=== PATIENT | female | born 1980 | race Caucasian/White ===

== ENCOUNTER 2017-08-12 13:09 | Emergency (ER) | payer SELFPAY, OTHER | END 2017-08-12 16:00 | disposition left against medical advice (07) | LOC: FTE 13:09 | DX: Z53.21 Procedure and treatment not carried out due to patient leaving prior to being seen by health care provider (principal) ==

== ENCOUNTER 2018-01-08 00:27 | Emergency (ER) | payer SELFPAY, OTHER | END 2018-01-08 00:54 | disposition left against medical advice (07) | LOC: FTE 00:27 | DX: Z53.21 Procedure and treatment not carried out due to patient leaving prior to being seen by health care provider (principal) ==

== ENCOUNTER 2018-04-24 18:24 | Emergency (ER) | payer OTHER ==
[2018-04-24] MEDS ORDERED: ONDANSETRON 4 MG INJ IV (19:28)
[2018-04-24] MEDS ORDERED: SOD CHLORIDE 0.9% 1,000 ML IV (19:28)
[2018-04-24] MEDS ORDERED: FAMOTIDINE 20 MG INJ IV (19:28)
[2018-04-24 19:56] LABS: URINE BLOOD (Dip) POC 2+ (NEGATIVE); URINE GLUCOSE (Dip) POC Negative (NEGATIVE); URINE KETONES (Dip) POC Negative (NEGATIVE); URINE LEUKOCYTE EST (Dip) POC Negative (NEGATIVE); URINE NITRITE (Dip) POC Negative (NEGATIVE); URINE TOTAL PROTEIN POC Negative (NEGATIVE)
== END 2018-04-24 20:46 | disposition left against medical advice (07) ==
LOC: FTE 18:24
DX: R10.2 Pelvic and perineal pain (principal); F17.210 Nicotine dependence, cigarettes, uncomplicated
CPT/HCPCS: 71045; 81003; 81025; 99283-25

== ENCOUNTER 2018-06-16 23:59 | Emergency (ER) | payer SELFPAY, OTHER | END 2018-06-17 02:30 | disposition left against medical advice (07) | LOC: FTE 23:59 | DX: Z53.21 Procedure and treatment not carried out due to patient leaving prior to being seen by health care provider (principal) ==

== ENCOUNTER 2019-01-24 06:14 | Emergency (ER) | payer OTHER ==
[2019-01-24] MEDS: ACETAMINOPHEN 500 MG TAB PO (06:44)
[2019-01-24] MEDS: ONDANSETRON (ODT) 4 MG TAB ODT (06:44)
== END 2019-01-24 07:13 | disposition home or self-care (01) ==
LOC: FTE 07:13
DX: R19.7 Diarrhea, unspecified (principal); F17.210 Nicotine dependence, cigarettes, uncomplicated
CPT/HCPCS: 99283; Z7502